=== PATIENT | male | born 1970 | race Hispanic/Latino ===

== ENCOUNTER → 2021-12-02 | Day surgery (SDC) | payer OTHER ==
[2021-11-28 13:24] LABS: ANION GAP 12.8 mmol/L (8-16); CALCIUM 9.2 mg/dL (8.4-10.2); CREATININE, SERUM 0.85 mg/dL (0.72-1.25); POTASSIUM 4.8 mmol/L (3.5-5.1)
[~2021-12-02] MED LIST: EPINEPHRINE 1 MG/ML 30ML VIAL ONE; FENOFIBRATE145 MG PO; GLYBURIDE5 MG PO; METFORMIN HCL500 MG PO; ZESTRIL2.5 MG PO
[2021-12-02 13:51] VITALS: BP 104/63
== END | disposition home or self-care (01) ==
LOC: OR 07:02
PROVIDERS: ATTEND Specialist
DX: S46.012A Strain of muscle(s) and tendon(s) of the rotator cuff of left shoulder, initial encounter (principal); E11.9 Type 2 diabetes mellitus without complications; I10 Essential (primary) hypertension; E78.5 Hyperlipidemia, unspecified; W01.10XA Fall on same level from slipping, tripping and stumbling with subsequent striking against unspecified object, initial encounter; Y92.009 Unspecified place in unspecified non-institutional (private) residence as the place of occurrence of the external cause; Z01.810 Encounter for preprocedural cardiovascular examination; Z01.812 Encounter for preprocedural laboratory examination; Z20.822 Contact with and (suspected) exposure to COVID-19; Z79.84 Long term (current) use of oral hypoglycemic drugs; Z79.899 Other long term (current) drug therapy
CPT/HCPCS: 29827; 36415 ×2; 80048; 82948; 93005; C1713; J0690; U0002